=== PATIENT | female | born 1960 | race Caucasian/White ===

== ENCOUNTER 2024-12-23 17:34 | Inpatient (IN) | payer MEDICAID, OTHER ==
[~2024-12-23] VITALS: Ht 162.6 cm; Wt 60.8 kg
[2024-12-23] MEDS: SODIUM CHLORIDE 0.9% 1,000 ML IV ONE (18:03)
[2024-12-23 18:31] LABS: BASOPHILS % 0.5 % (0.0-2.0); EOSINOPHILS % 1.8 % (0.0-5.0); HEMATOCRIT. 38.2 % (36.0-48.0); HEMOGLOBIN. 12.6 g/dL (12.0-16.0); LYMPHOCYTES % 39.2 % (20.0-50.0); MEAN PLATELET VOLUME 11.3 fl (7.4-10.4); MONOCYTES % 7.6 % (2.0-8.0); NEUTROPHILS % 50.9 % (40.0-76.0); PLATELET 113 x1000/uL (130-400); RED BLOOD CELL COUNT 4.11 mill/uL (4.2-5.4); RED CELL DISTRIBUTION WIDTH 15.9 % (11.6-14.6)
[2024-12-23 18:47] LABS: CREATININE 0.9 mg/dL (0.6-1.0); TROPONIN I HIGH SENSITIVITY < 4 ng/L (3.0-34)
[2024-12-23 18:48] LABS: UREA NITROGEN BLOOD 11 mg/dL (9-23)
[2024-12-23 18:49] LABS: ASPARTATE AMINOTRANSFERASE 48 IU/L (<34)
[2024-12-23 18:50] LABS: BILIRUBIN DIRECT < 0.1 mg/dL (<=3.0); BILIRUBIN TOTAL 0.2 mg/dL (0.1-1.0); PROTEIN TOTAL 6.9 g/dL (6.0-8.3)
[2024-12-23 21:17] LABS: TROPONIN I HIGH SENSITIVITY < 4 ng/L (3.0-34)
[2024-12-23 22:00] VITALS: BP 143/88; PULSE 73; RESP 18; TEMP 36.5292
[2024-12-23] MEDS ORDERED: ONDANSETRON HCL 4MG/2ML INJ IV PRN (23:45)
[2024-12-23] MEDS ORDERED: HYDROCODONE/ACETAMINOPHEN 5/325MG TABLET PO PRN (23:45)
[2024-12-23] MEDS ORDERED: ZOLPIDEM TARTRATE 5MG TABLET PO PRN (23:45)
[2024-12-23] MEDS ORDERED: ACETAMINOPHEN 325MG TABLET PO PRN (23:45)
[2024-12-23] MEDS ORDERED: MAGNESIUM/ALUMINUM HYDROXIDE/SIMETHICONE 30ML UDC PO PRN (23:45)
[2024-12-24] VITALS: BP 143/81; PULSE 56; RESP 18; TEMP 36.6; O2SAT 99
[2024-12-24 07:32] LABS: TROPONIN I HIGH SENSITIVITY < 4 ng/L (3.0-34)
[2024-12-24 07:35] LABS: BASOPHILS % 0.6 % (0.0-2.0); EOSINOPHILS % 0.8 % (0.0-5.0); HEMATOCRIT. 38.2 % (36.0-48.0); HEMOGLOBIN. 12.8 g/dL (12.0-16.0); LYMPHOCYTES % 46.6 % (20.0-50.0); MEAN PLATELET VOLUME 12.1 fl (7.4-10.4); MONOCYTES % 8.2 % (2.0-8.0); NEUTROPHILS % 43.8 % (40.0-76.0); PLATELET 107 x1000/uL (130-400); RED BLOOD CELL COUNT 4.21 mill/uL (4.2-5.4); RED CELL DISTRIBUTION WIDTH 15.5 % (11.6-14.6)
[2024-12-24 07:38] LABS: CREATININE 0.7 mg/dL (0.6-1.0); UREA NITROGEN BLOOD 12 mg/dL (9-23)
[2024-12-24 08:00] VITALS: BP 120/70; PULSE 70; RESP 16; TEMP 36.9; O2SAT 98
[2024-12-24] MEDS: PANTOPRAZOLE SODIUM 40 MG/VIAL IV SCH (10:15)
[2024-12-24] MEDS: ENOXAPARIN 40MG/0.4ML SYR SUBCUT SCH (10:16)
[2024-12-24 12:00] VITALS: BP 124/74; PULSE 77; RESP 16; TEMP 36.9; O2SAT 99
[2024-12-24 14:05] LABS: CLARITY URINE CLEAR (CLEAR); COLOR URINE YELLOW (YELLOW); GLUCOSE URINE NEGATIVE (NEGATIVE); KETONES URINE TRACE (NEGATIVE); LEUKOCYTE ESTERASE URINE NEGATIVE (NEGATIVE); NITRITE URINE NEGATIVE (NEGATIVE); OCCULT BLOOD URINE NEGATIVE (NEGATIVE); PH URINE 7.0 (4.5-8.0); PROTEIN URINE NEGATIVE (NEGATIVE); SPECIFIC GRAVITY URINE 1.013 (1.005-1.030); UROBILINOGEN URINE 0.2 E.U./dL (0.2-1.0)
[2024-12-24 14:22] LABS: *AMPHETAMINES SCREEN URINE NEGATIVE (NEGATIVE); *BARBITURATES SCREEN URINE NEGATIVE (NEGATIVE); *BENZODIAZEPINES SCREEN URINE NEGATIVE (NEGATIVE)
[2024-12-24 14:23] LABS: *COCAINE SCREEN URINE NEGATIVE (NEGATIVE); CANNABINOID URINE SCREEN NEGATIVE (NEGATIVE); ECSTASY MDMA SCREEN URINE NEGATIVE (NEGATIVE); METHADONE URINE SCREEN NEGATIVE (NEGATIVE); OPIATES URINE SCREEN NEGATIVE (NEGATIVE); PHENCYCLIDINE URINE SCREEN NEGATIVE (NEGATIVE)
[2024-12-24 15:30] LABS: TROPONIN I HIGH SENSITIVITY < 4 ng/L (3.0-34)
[2024-12-24 16:00] VITALS: BP 123/89; PULSE 70; RESP 16; TEMP 37.3; O2SAT 98
[2024-12-24 20:00] VITALS: BP 118/72; PULSE 64; RESP 17; TEMP 36.2; O2SAT 99
[2024-12-25] VITALS: BP 122/73; PULSE 71; RESP 16; TEMP 37.1; O2SAT 100
[2024-12-25 00:19] LABS: TROPONIN I HIGH SENSITIVITY < 4 ng/L (3.0-34)
[2024-12-25 04:00] VITALS: BP 97/65; PULSE 83; RESP 16; TEMP 36.4; O2SAT 98
[2024-12-25 06:33] LABS: BASOPHILS % 0.5 % (0.0-2.0); EOSINOPHILS % 2.0 % (0.0-5.0); HEMATOCRIT. 41.6 % (36.0-48.0); HEMOGLOBIN. 13.5 g/dL (12.0-16.0); LYMPHOCYTES % 50.8 % (20.0-50.0); MEAN PLATELET VOLUME 11.4 fl (7.4-10.4); MONOCYTES % 7.2 % (2.0-8.0); NEUTROPHILS % 39.5 % (40.0-76.0); PLATELET 105 x1000/uL (130-400); RED BLOOD CELL COUNT 4.57 mill/uL (4.2-5.4); RED CELL DISTRIBUTION WIDTH 15.9 % (11.6-14.6)
[2024-12-25 06:56] LABS: CREATININE 0.8 mg/dL (0.6-1.0); UREA NITROGEN BLOOD 17 mg/dL (9-23)
[2024-12-25 08:00] VITALS: BP 114/69; PULSE 63; RESP 18; TEMP 37.4; O2SAT 97
[2024-12-25] MEDS ORDERED: DEXTROSE 50% WATER 50ML SYRINGE IV PRN (11:15)
[2024-12-25 12:00] VITALS: BP 135/63; PULSE 94; RESP 18; TEMP 37; O2SAT 98
[2024-12-25] MEDS: INSULIN LISPRO 100 UNITS/ML SUBCUT SCH (12:15)
[2024-12-25] MEDS: SODIUM CHLORIDE 0.9% 1,000 ML IV SCH (12:36)
[2024-12-25] MEDS: BLOOD SUGAR DIAGNOSTIC STRIP TEST SCH (12:37)
[2024-12-25] MEDS ORDERED: ALBUTEROL 6.7GM HFA INHALER ORI SCH (14:45)
[2024-12-25] MEDS ORDERED: GUAIFENESIN/CODEINE 200-20MG/10ML UDC PO PRN (14:45)
[2024-12-25] MEDS ORDERED: NALOXONE HCL 0.4MG/ML VIAL IV PRN (15:00)
[2024-12-25] MEDS: DEXAMETHASONE 10 MG/ML VIAL IV SCH (15:17)
[2024-12-25 16:00] VITALS: BP 102/65; PULSE 68; RESP 18; TEMP 36.9; O2SAT 99
[2024-12-25 20:00] VITALS: BP 136/76; PULSE 87; RESP 18; TEMP 36.4; O2SAT 99
[2024-12-26] VITALS (7 sets, daily range): BP systolic 99–130; BP diastolic 57–82; PULSE 64–77; RESP 15–20; TEMP 36.2–36.4; O2SAT 95–98
[2024-12-26] MEDS: ALBUTEROL (0.083%) 2.5MG/3ML NEB HHN SCH (01:59)
[2024-12-26 07:19] LABS: CREATININE 0.7 mg/dL (0.6-1.0); UREA NITROGEN BLOOD 15 mg/dL (9-23)
[2024-12-26 07:33] LABS: BASOPHILS % 0.1 % (0.0-2.0); EOSINOPHILS % 0.0 % (0.0-5.0); HEMATOCRIT. 37.2 % (36.0-48.0); HEMOGLOBIN. 12.3 g/dL (12.0-16.0); LYMPHOCYTES % 31.8 % (20.0-50.0); MEAN PLATELET VOLUME 11.2 fl (7.4-10.4); MONOCYTES % 5.9 % (2.0-8.0); NEUTROPHILS % 62.2 % (40.0-76.0); PLATELET 101 x1000/uL (130-400); RED BLOOD CELL COUNT 4.08 mill/uL (4.2-5.4); RED CELL DISTRIBUTION WIDTH 15.7 % (11.6-14.6)
[2024-12-26] MEDS ORDERED: TUSSL MT (09:35)
[2024-12-26] MEDS ORDERED: METH4TAB95 MT (09:35)
== END 2024-12-26 14:20 | disposition home or self-care (01) | DRG 137 ==
LOC: ER 17:34 → EDBEDREQTM 21:39 → EDBEDREQ 21:39 → ENRESERV 21:45 → 5WST 22:44
PROVIDERS: ADMIT Internal Medicine; ATTEND Internal Medicine
DX: U07.1 COVID-19 (principal); D69.6 Thrombocytopenia, unspecified; I95.89 Other hypotension; E11.22 Type 2 diabetes mellitus with diabetic chronic kidney disease; E86.0 Dehydration; N18.9 Chronic kidney disease, unspecified; I12.9 Hypertensive chronic kidney disease with stage 1 through stage 4 chronic kidney disease, or unspecified chronic kidney disease; Z78.9 Other specified health status
CPT/HCPCS: 36415; 71045; 80048; 80076; 80305; 81003; 82962; 83036; 83735; 84145; 84443; 84484; 85025; 87426; 93005; 93880; 93970; 94070; 94640; 94664; 97162; 97535; 98960; 99285; J1100; J1650; J1815; J2470; J7030